=== PATIENT | male | born 1985 | race Caucasian/White ===

== ENCOUNTER 2017-11-23 09:49 | Day surgery (SDC) | payer OTHER, SELFPAY ==
[2017-11-19 09:16] LABS: Hematocrit 44.5 % (40-54); Hemoglobin 15.5 g/dl (13.0-16.5); Mean Corp Hgb Conc 34.8 g/gl (32-36); Mean Corpuscular Hgb 30.3 pg (27.0-32.0); Mean Corpuscular Volume 87.1 fL (80-94); Platelet Count 163 K/mm3 (150-450); RBC Distribution Width CV 12.3 % (11.6-14.6); RBC Distribution Width SD 38.8 fl (35.1-43.9); Red Blood Count 5.11 M/mm3 (4.6-6.2); White Blood Count 4.1 K/mm3 (4.4-11.0)
[2017-11-19 09:19] LABS: Scan Indicated on CBC? Y/N NO
[2017-11-19 09:31] LABS: Anion Gap 8 (5-15); BUN 14 mg/dL (7-18); BUN/Creat Ratio 14.1 RATIO (10-20); Calcium,Total 9.1 mg/dL (8.5-10.1); Chloride 104 mmol/L (98-107); Creatinine, Serum 0.99 mg/dL (0.70-1.30); EST Glomerular Filtration Rate 92 mL/min (>60); Est Glom Filt Rate - Afr Amer 111 mL/min (>60); Glucose 99 mg/dL (74-106); Potassium 3.9 mmol/L (3.5-5.1); Sodium Level 139 mmol/L (136-145)
[2017-11-23] VITALS (7 sets, daily range): BP systolic 128–143; BP diastolic 65–93; PULSE 61–82; RESP 16–18; TEMP 36.4–37; O2SAT 96–100; BMI 26.5
--- NOTE | 2017-11-23 | SEP_PTH ---
PATIENT: AUDIE SIDHU LOC: [facility] – [place] U#:[id number] AGE/SX: 32/M ROOM: RE11/23/[address]: Dr. Link Gold MD : [id number] BED: DIS: 11/23/2017 SPEC #: [id number] RECD: 11/23/17 14:25 STATUS: LATISHA BECK #: [id number] KELLY: 11/23/17 00:[address]: Link Gold DEPT: SURGICAL PATHOLOGY RECD BY: Mook Martinez ENTERED: 11/23/17 14:26 SP TYPE: SEPTUM OTHR DR: No Primary Care Phys Tissues: Nasal septum, NOS Procedures: Decalcification bone/plaque Surgery Specimen Level III HEADER OPERATION: Septoplasty, submucous resect/inferior turbinates PRE-OP DIAGNOSIS: Deviated nasal septum, hypertrophy of nasal turbinates TISSUE SUBMITTED: Nasal septum MICROSCOPIC DIAGNOSIS Nasal septum: Fragments of cartilage and bone, clinically deviated nasal septum. SJ:sushma 11/26/17 MICROSCOPIC DESCRIPTION Slides are reviewed. GROSS DESCRIPTION Received in fixative is one container labeled with the patient's name and designated nasal septum. The specimen consists of multiple fragments of cartilage and bone that in aggregate measure 3.5 x 3 x 0.5 cm. Industrial Maintenance Electrician tissue is submitted in one cassette after decalcification. / VIC:sushma 11/23/17 TC:5 CPT: 49734, 03790
--- NOTE | 2017-11-23 11:30 | PCM.DC ---
You will use the following diet at home:: Regular Your food should be the consistency of: Regular Discharge Activity: Return to Normal Activity, - - No noseblowing Additional Activity Instructions:: Start saline nasal spray on 11/24/17...3 sprays each nostril three times a day Allergies/Adverse Reactions: Allergies No Known Allergies Allergy (Verified 11/16/17 08:26) Medications to take at Discharge Fexofenadine/Pseudoephedrine [Kaelyn-D 12 Hour Tablet] 1 each PO PRN PRN 11/16/17 Primary Care Physician: Care Physician,No Primary [Primary Care Provider] - Test Results: Test results from this visit will be discussed in further detail at your follow-up appointment, if applicable.
[2017-11-23] MEDS: Mupirocin Ointment 22gm Tube 1 APPLIC (11:45)
[2017-11-23] MEDS: Oxymetazoline 0.05% 1 SPRAY SPRAY.BTL 15 SPRAY (11:45)
--- NOTE | 2017-11-23 12:40 | PCM.OPRPT ---
Report of Operation Date of Procedure: 11/23/17 Pre-Operative Diagnosis: nasal airway obstruction. deviated septum. turbinate hypertrophy Post-Operative Diagnosis: same Surgery/Procedure Performed:: Septoplasty. submucous resection inferior turbinates Description of Surgical Findings:: deviated septum turbinate hypertrophy Type of Anesthesia:: General Anesthesiologist: Isacc Hernandez Specimen's removed: septum. turbinate contents Estimated Blood Loss (mL): minimal Description of Procedure: The patient was taken to the OR on 11/23/17. He was placed in the supine position on the OR table. He was given sufficient general endotracheal anesthesia. The patient was draped steriley. 1 % lidocaine with epinephrine ([id number]) was injected into the septum, turbinates and nasal floor bilaterally. I then made a right hemitransfixtion incision with a 15 blade. A plane was established on the left side of the quadrangular cartilage. The mucoperichondrium was elevated with a freer elevator and in this way, an anterior and posterior tunnel were created. I then made an incision about 1.5 cm back from the anterior septum in the quadrangular cartilage and a plane was established on the left septum. An anterior and posterior tunnel were created. The deviated portions of the quadrangular cartilage were removed with a D knife. The deviated tk septum was removed with open Vic-Nell forceps. Next, I resected the maxillary crest with a hammer and chisel. The remaining cartilage was scored with a 15 blade. Hemostasis was achieved with afrin pledgets. The resected quadrangular cartilage was scored and placed back in the septal pocket. Next an incision was made at the anterior aspect of the left inferior turbinate at the mucocutaneous junction. A submucous plane was established with a [place] elevator. Submucous resection was carried out with a microdebrider. The incision was then closed with 4-0 chromic. Next an incision was made at the anterior aspect of the right inferior turbinate at the mucocutaneous junction. A submucous plane was established with a [place] elevator. Submucous resection was carried out with a microdebrider. The incision was then closed with 4-0 chromic. Floseal was placed in the septum and the septum was closed with 4-0 chromic. Breaux nasal splints were applied to each side of the septum and sewn through and through with 3-0 silk. Floseal was placed on all of the incisions. No further bleeding was visualized. The procedure was terminated. The patient was awoken and brought to the recovery room in stable condition. Blood loss minimal, replacement none. Sponge, needle and instrument count were correct at the end of the procedure.
[2017-11-23] MEDS: HYDROcodone Bitartrate/Apap 5/325 Tablet PO (13:27)
== END 2017-11-23 14:33 | disposition home or self-care (01) ==
LOC: SDC 09:51 → AC 09:51
PROVIDERS: Visit Provider Otolaryngology
PROC: (CPT 30520; principal; 2017-11-23 11:20)
DX: J34.2 Deviated nasal septum (principal); J34.3 Hypertrophy of nasal turbinates
CPT/HCPCS: 00160; 30140; 30520; 36415; 80048; 85027; 88304; 88311; J7120; J2405